=== PATIENT | female | born 1995 | race Caucasian/White ===

== ENCOUNTER 2024-02-27 10:30 | Outpatient (RCR) | payer OTHER, SELFPAY ==
[2023-10-15 11:08] VITALS: BP 115/70; PULSE 116; RESP 16; TEMP 36.6; O2SAT 92
[2023-10-15 11:55] VITALS: BP 110/74; PULSE 104; RESP 22; TEMP 36.9; O2SAT 93
[2023-10-15 12:11] VITALS: BP 107/70; PULSE 101; RESP 22; TEMP 36.9; O2SAT 95
[2023-10-15 12:56] VITALS: BP 103/68; PULSE 99; RESP 16; TEMP 36.2; O2SAT 94
[2023-10-15 13:56] VITALS: BP 117/77; PULSE 105; RESP 24; TEMP 36.9; O2SAT 93
[2023-10-15 14:53] VITALS: BP 114/65; PULSE 105; RESP 24; TEMP 36.6; O2SAT 94
--- NOTE | 2023-11-04 11:55 | ONC.NURNOTE ---
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
--- NOTE | 2024-02-25 14:16 | PC.NURSE ---
Diagnosis: Neuroendocrine carcinoma
[2024-02-27] VITALS (7 sets, daily range): BP systolic 106–118; BP diastolic 64–76; PULSE 96–106; RESP 16–28; TEMP 36.6–37.5; O2SAT 91–95
[2024-02-27] MEDS: 0.9 % SODIUM CHLORIDE 500 ML IV (14:55)
[2024-02-27] MEDS: HEPARIN 500 UNIT/5 ML SYRINGE IVF (14:55)
[2024-02-27] MEDS: SODIUM CHLORIDE 0.9 % (FLUSH) 10 ML SYRINGE IVF (14:55)
== END 2024-04-01 23:59 | disposition home or self-care (01) ==
LOC: CCIC 10:30
PROVIDERS: Visit Provider Internal Medicine Hematology & Oncology
DX: C80.1 Malignant (primary) neoplasm, unspecified (principal); C7A.8 Other malignant neuroendocrine tumors
CPT/HCPCS: 36415; 36430; 86850; 86900; 86901; 86922; J1642; J7030; P9016